=== PATIENT | female | born 1975 | race Caucasian/White ===

== ENCOUNTER → 2020-09-16 | Day surgery (SDC) | payer OTHER ==
[2020-09-14 13:38] VITALS: BMI 23.8
[~2020-09-16] MED LIST: CEFAZOLIN 1 GM VIAL ONE; CeleCOXIB 100 MG CAP ONE; Famotidine/PF 20 mg/2ml Vial ONE; Fentanyl 100 MCG/2 ML VIAL ONE; Gabapentin 300 MG CAP ONE; Ketorolac Tromethamine 30 MG/ML VIAL ONE; Lidocaine 1% MPF 2 ML VIAL ONE; Lidocaine 1% PF 5 ML VIAL ONE; Lidocaine 1% w/Epinephrine 1:200K 30 ML VIAL ONE; Ondansetron PF 4 MG/2 ML Vial ONE; PROPOFOL 20 ML ONE
== END ==
LOC: CSHSDC 11:00
PROVIDERS: ATTEND Obstetrics & Gynecology
PROC: 0UB97ZZ Excision of Uterus, Via Natural or Artificial Opening (ICD-10-PCS; principal; 2020-09-16)
DX: D25.9 Leiomyoma of uterus, unspecified (principal); D64.9 Anemia, unspecified; J45.909 Unspecified asthma, uncomplicated; Z79.899 Other long term (current) drug therapy
CPT/HCPCS: 88305; J0690; J1885; J2405; J2704; J3010; S0028

== ENCOUNTER 2024-01-05 13:08 | Outpatient (CLI) | payer OTHER | END 2024-01-05 13:09 | disposition home or self-care (01) | LOC: CSHMAMMO 13:08 | PROVIDERS: ATTEND Family Medicine | DX: Z12.31 Encounter for screening mammogram for malignant neoplasm of breast (principal) | CPT/HCPCS: 77063; 77067 ==